=== PATIENT | female | born 1990 | race African-American/Black ===

== ENCOUNTER 2017-02-26 08:24 | Inpatient (IN) ==
[2017-02-26] MEDS ORDERED: ONDANSETRON 4 MG/2 ML VIAL IV PRN ×2 (09:55→14:09)
[2017-02-26] MEDS ORDERED: BUTORPHANOL 1 MG/ML VIAL IV PRN (09:55)
[2017-02-26] MEDS ORDERED: AMPICILLIN INJ 2,000 MG in SODIUM CHLORIDE 0.9% 100 ML IV ONE (09:59)
[2017-02-26] MEDS ORDERED: OXYTOCIN/LR 20 UNIT/1,000 ML BAG IV SCH (10:00)
[2017-02-26] MEDS: LACTATED RINGERS 1,000 ML IV SCH ×2 (10:11→11:33)
[2017-02-26 10:42] LABS: Basophils % 0.1 % (0.0-0.8); Eosinophils % 0.3 % (0.00-10.9); Hematocrit 26.7 VOL% (35.7-47.0); Hemoglobin 7.9 GM/DL (12.0-16.0); Immature Granulocytes % 1.1 %; Lymphocytes # 1.4 10*3/uL (1.4-4.0); Lymphocytes % 15.3 % (21.3-54.2); Mean Corpuscular HGB Conc 29.6 GM/DL (32-36); Mean Corpuscular Hemoglobin 23 PG (27-34); Mean Corpuscular Volume 78.5 FL (87-102); Mean Platelet Volume 11.7 FL (9.6-12.0); Monocytes # 0.7 10*3/uL (0.11-0.8); Neutrophils # 6.9 10*3/uL (1.4-7.4); Neutrophils % 75.2 % (38.7-73.9); Platelet Count 248 T/CUMM (130-400); Red Cell Distribution Width 13.2 % (9.3-17.3); White Blood Count 9.2 T/CUMM (4-12)
[2017-02-26] MEDS ORDERED: diphenhydrAMINE 50 MG/1 ML VIAL IV PRN (10:50)
[2017-02-26] MEDS ORDERED: ePHEDrine 50 MG/ML AMP IV PRN (10:50)
[2017-02-26] MEDS ORDERED: FAMOTIDINE 20 MG/2 ML VIAL IV ONE (10:50)
[2017-02-26] MEDS ORDERED: CITRIC ACID/SODIUM CITRATE 30 ML UDCUP PO ONE (10:50)
[2017-02-26] MEDS ORDERED: hydrOXYzine HCL 25 MG/1 ML VIAL IM PRN (10:50)
[2017-02-26] MEDS ORDERED: fentaNYL 2 MCG/ROPIV 0.2% EPID 150 ML EPIDURAL SCH (11:00)
[2017-02-26 11:10] LABS: Bilirubin,Total 0.6 MG/DL (0.2-1.0); Calcium 8.3 MG/DL (8.5-10.1); Osmolality,Calculated 270.7 MOS/KG (273-304); Potassium 3.6 MMOL/L (3.5-5.1); Total Protein 6.5 G/DL (6.4-8.3)
[2017-02-26 12:08] LABS: HIV Antigen/Antibody Result Nonreactive (Nonreactive); Hepatitis B Surface Ag Quant < 0.10 Index; Hepatitis B Surface Ag Result Negative (Negative)
[2017-02-26] MEDS ORDERED: AMPICILLIN INJ 1,000 MG in SODIUM CHLORIDE 0.9% 100 ML IV SCH (14:00)
[2017-02-26] MEDS ORDERED: oxyCODONE/ACETAMINOPHEN 5-325 MG TABLET PO PRN (14:09)
[2017-02-26] MEDS ORDERED: OXYTOCIN/LR 20 UNIT/1,000 ML BAG IV ONE (14:09)
[2017-02-26] MEDS ORDERED: RHO(D) IMMUNE GLOBULIN 300 MCG SYRINGE IM ONE (14:09)
[2017-02-26] MEDS ORDERED: MEASLES/MUMPS/RUBELLA VACCINE 0.5 ML VIAL SUBCUT ONE (14:09)
[2017-02-26] MEDS ORDERED: LANOLIN 50% CREAM 0.3 OZ TUBE TOP PRN (14:09)
[2017-02-26] MEDS ORDERED: WITCH HAZEL PADS 100/JAR TOP PRN (14:09)
[2017-02-26] MEDS ORDERED: ACETAMINOPHEN 325 MG TABLET PO PRN (14:09)
[2017-02-26] MEDS ORDERED: BISACODYL 10 MG SUPP RECTAL PRN (14:09)
[2017-02-26] MEDS ORDERED: BENZOCAINE 20%/MENTHOL 0.5% SPRAY 56 GM CAN TOP PRN (14:09)
[2017-02-26] MEDS ORDERED: HYDROCORTISONE 2.5% RECTAL CREAM 30 GM TUBE TOP PRN (14:09)
[2017-02-26] MEDS ORDERED: DIPH/TET/ACEL PERT BOOSTER VACCINE 0.5 ML VIAL IM ONE (14:09)
[2017-02-26 14:13] LABS: Cord Venous Blood HCO3 22.4 MMOL/L; Cord Venous Blood PCO2 37.7 MMHG; Cord Venous Blood PO2 37.7
[2017-02-26] MEDS: oxyCODONE/ACETAMINOPHEN 5-325 MG TABLET PO PRN ×2 (15:10→21:25)
[2017-02-26] MEDS: IBUPROFEN 800 MG TABLET PO PRN (18:35)
[2017-02-26] MEDS: DOCUSATE SODIUM 100 MG CAPSULE PO SCH (21:25)
[2017-02-26] MEDS: FERROUS SULFATE 325 MG TABLET PO SCH (21:25)
[2017-02-27 06:07] LABS: Basophils % 0.2 % (0.0-0.8); Eosinophils # 0.2 10*3/uL (0.0-0.87); Hematocrit 26.1 VOL% (35.7-47.0); Hemoglobin 7.9 GM/DL (12.0-16.0); Immature Granulocytes % 1.3 %; Lymphocytes # 2.1 10*3/uL (1.4-4.0); Lymphocytes % 13.3 % (21.3-54.2); Mean Corpuscular HGB Conc 30.3 GM/DL (32-36); Mean Corpuscular Hemoglobin 23 PG (27-34); Mean Corpuscular Volume 77.2 FL (87-102); Mean Platelet Volume 11.2 FL (9.6-12.0); Monocytes # 0.8 10*3/uL (0.11-0.8); Monocytes % 5.1 % (1.7-12.7); Neutrophils # 12.5 10*3/uL (1.4-7.4); Neutrophils % 79.1 % (38.7-73.9); Platelet Count 240 T/CUMM (130-400); Red Blood Count 3.38 MC/CUMM (3.8-5.5); Red Cell Distribution Width 13.3 % (9.3-17.3); White Blood Count 15.8 T/CUMM (4-12)
[2017-02-27] MEDS ORDERED: RHO(D) IMMUNE GLOBULIN 300 MCG SYRINGE IM ONE (09:03)
[2017-02-27] MEDS: FERROUS SULFATE 325 MG TABLET PO SCH ×2 (09:09→20:55)
[2017-02-27] MEDS: DOCUSATE SODIUM 100 MG CAPSULE PO SCH ×2 (09:09→20:55)
[2017-02-27] MEDS: IBUPROFEN 800 MG TABLET PO PRN ×2 (09:32→20:55)
[2017-02-27] MEDS: oxyCODONE/ACETAMINOPHEN 5-325 MG TABLET PO PRN ×3 (09:33→20:55)
[2017-02-28] MEDS: IBUPROFEN 800 MG TABLET PO PRN (06:53)
[2017-02-28] MEDS: oxyCODONE/ACETAMINOPHEN 5-325 MG TABLET PO PRN (06:54)
[2017-02-28 07:18] VITALS: BP 123/77
[2017-02-28] MEDS: DOCUSATE SODIUM 100 MG CAPSULE PO SCH (09:53)
[2017-02-28] MEDS: FERROUS SULFATE 325 MG TABLET PO SCH (09:53)
== END 2017-02-28 13:15 | disposition home or self-care (01) | DRG 560 ==
LOC: N.LDOUT 08:24 → N.LD 08:28 → N.OB 16:39
PROVIDERS: ADMIT Obstetrics & Gynecology; ATTEND Obstetrics & Gynecology

== ENCOUNTER 2021-04-17 10:08 | Observation (INO) ==
[2021-04-17] MEDS ORDERED: KETOROLAC 30 MG/1 ML VIAL IV STA (11:19)
[2021-04-17 11:22] LABS: Basophils % 0.4 % (0.0-0.8); Eosinophils # 0.1 10*3/uL (0.0-0.87); Eosinophils % 0.5 % (0.00-10.9); Hematocrit 23.7 VOL% (35.7-47.0); Immature Granulocytes % 0.5 %; Immature Granulocytes Absolute 0.05 #; Lymphocytes # 1.9 10*3/uL (1.4-4.0); Lymphocytes % 16.9 % (21.3-54.2); Mean Corpuscular HGB Conc 27.4 GM/DL (32-36); Mean Corpuscular Volume 65.1 FL (87-102); Mean Platelet Volume 10.2 FL (9.6-12.0); Monocytes % 7.4 % (1.7-12.7); Neutrophils % 74.3 % (38.7-73.9); Platelet Count 382 T/CUMM (130-400); Red Blood Count 3.64 MC/CUMM (3.8-5.5); Red Cell Distribution Width 18.2 % (9.3-17.3)
[2021-04-17 11:40] LABS: Hemoglobin 6.5 GM/DL (12.0-16.0)
[2021-04-17 11:42] LABS: Eosinophils 1 % (0-10); Hypochromia 2+; Lymphocytes 17 % (20-55); Microcytosis 1+; Platelet Estimate Adequate; Segmented Neutrophils 78 % (50-85); Total Cells Counted 100
[2021-04-17 11:57] LABS: Alanine Aminotransferase 27 U/L (13-56); Albumin 3.2 G/DL (3.4-5.0); Alkaline Phosphatase 90 U/L (45-117); Aspartate Amino Transferase 23 U/L (0-37); Bilirubin,Total < 0.39 MG/DL (0.20-1.00); Blood Urea Nitrogen 11 MG/DL (7-18); Calcium 8.3 MG/DL (8.5-10.1); Carbon Dioxide 26 MMOL/L (21-32); Estimated Glom Filtration Rate 146 ML/MIN; Glucose 78 MG/DL (74-106); Osmolality,Calculated 276.4 MOS/KG (273-304); Sodium 140 MMOL/L (136-145); Total Protein 7.4 G/DL (6.4-8.2)
[2021-04-17 12:44] LABS: Basophils % 0.3 % (0.0-0.8); Eosinophils # 0.1 10*3/uL (0.0-0.87); Eosinophils % 0.7 % (0.00-10.9); Hematocrit 22.4 VOL% (35.7-47.0); Immature Granulocytes % 0.7 %; Immature Granulocytes Absolute 0.07 #; Lymphocytes # 1.8 10*3/uL (1.4-4.0); Lymphocytes % 17.4 % (21.3-54.2); Mean Corpuscular HGB Conc 27.7 GM/DL (32-36); Mean Corpuscular Volume 64.4 FL (87-102); Mean Platelet Volume 10.2 FL (9.6-12.0); Monocytes % 7.3 % (1.7-12.7); Neutrophils % 73.6 % (38.7-73.9); Platelet Count 338 T/CUMM (130-400); Red Blood Count 3.48 MC/CUMM (3.8-5.5); Red Cell Distribution Width 18.1 % (9.3-17.3); White Blood Count 10.2 T/CUMM (4-12)
[2021-04-17 12:45] LABS: Hemoglobin 6.2 GM/DL (12.0-16.0)
[2021-04-17 13:25] LABS: Lymphocytes 19 % (20-55); Segmented Neutrophils 79 % (50-85); Total Cells Counted 100
[2021-04-17 13:26] LABS: Anisocytosis 3+
[2021-04-17 13:27] LABS: Hypochromia 2+; Macrocytosis 1+; Microcytosis 3+; Platelet Estimate Normal; Poikilocytosis 1+; Polychromasia 2+; Schistocytes 1+; Target Cells Few
[2021-04-17 13:28] LABS: Tear Drop Cells Slight
[2021-04-17] MEDS ORDERED: ACETAMINOPHEN 325 MG TABLET PO PRN (13:37)
[2021-04-17] MEDS ORDERED: GLUCAGON 1 MG VIAL IM PRN (13:37)
[2021-04-17] MEDS ORDERED: ONDANSETRON 4 MG/2 ML VIAL IV PRN (13:37)
[2021-04-17] MEDS ORDERED: SODIUM CHLORIDE 0.9% 1,000 ML IV PRN (13:42)
[2021-04-17] MEDS ORDERED: DEXTROSE 10% 250 ML BAG IV PRN (13:48)
[2021-04-17 14:02] LABS: % Iron Saturation 3.7 % (18-50); Ferritin 3.2 ng/mL (8-252)
[2021-04-17] MEDS: CLINDAMYCIN INJ 600 MG/50 ML PREMIX IV SCH ×2 (15:27→21:33)
[2021-04-18] MEDS: CLINDAMYCIN INJ 600 MG/50 ML PREMIX IV SCH ×4 (05:17→21:31)
[2021-04-18 05:31] LABS: Basophils % 0.4 % (0.0-0.8); Eosinophils # 0.1 10*3/uL (0.0-0.87); Eosinophils % 1.2 % (0.00-10.9); Hematocrit 28.7 VOL% (35.7-47.0); Immature Granulocytes % 0.6 %; Immature Granulocytes Absolute 0.06 #; Lymphocytes # 2.2 10*3/uL (1.4-4.0); Lymphocytes % 21.2 % (21.3-54.2); Mean Corpuscular HGB Conc 29.3 GM/DL (32-36); Mean Corpuscular Volume 69.3 FL (87-102); Mean Platelet Volume 9.9 FL (9.6-12.0); Neutrophils % 68.6 % (38.7-73.9); Platelet Count 338 T/CUMM (130-400); Red Blood Count 4.14 MC/CUMM (3.8-5.5); Red Cell Distribution Width 21.1 % (9.3-17.3); White Blood Count 10.4 T/CUMM (4-12)
[2021-04-18 05:33] LABS: Hemoglobin 8.4 GM/DL (12.0-16.0)
[2021-04-18 05:48] LABS: Calcium 8.1 MG/DL (8.5-10.1); Osmolality,Calculated 279.3 MOS/KG (273-304)
[2021-04-18] MEDS ORDERED: KETOROLAC 30 MG/1 ML VIAL IM PRN (09:12)
[2021-04-18] MEDS ORDERED: LIDOCAINE 2% 5 ML VIAL ONE (10:12)
[2021-04-18] MEDS ORDERED: DEXAMETHASONE 4 MG/1 ML VIAL ONE (10:12)
[2021-04-18] MEDS ORDERED: ONDANSETRON 4 MG/2 ML VIAL ONE (10:12)
[2021-04-18] MEDS ORDERED: fentaNYL 100 MCG/2 ML VIAL ONE (10:12)
[2021-04-18] MEDS ORDERED: propofoL 200 MG/20 ML VIAL IV ONE (10:12)
[2021-04-18] MEDS ORDERED: SEVOFLURANE 1 UNIT/15 MINUTE INH ONE (11:07)
[2021-04-18] MEDS: PANTOPRAZOLE 40 MG TABLET PO SCH (12:57)
[2021-04-19] MEDS: CLINDAMYCIN INJ 600 MG/50 ML PREMIX IV SCH (05:15)
[2021-04-19] MEDS: PANTOPRAZOLE 40 MG TABLET PO SCH (09:32)
[2021-04-19 11:56] VITALS: BP 113/76
== END 2021-04-19 14:00 | disposition home or self-care (01) ==
LOC: N.ED 10:08 → N.EDINP 10:08 → SUATTDRO 13:42 → N.3E 20:10
PROVIDERS: ADMIT Internal Medicine; ATTEND Internal Medicine